=== PATIENT | female | born 1995 | race Caucasian/White ===

== ENCOUNTER → 2016-07-24 | Outpatient (CLI) | payer OTHER ==
--- NOTE | 2016-07-24 23:03 | WWHP ---
DATE OF SERVICE: 07/24/2016 CHIEF COMPLAINT: Patient is here for her routine gynecologic exam. HPI: This is a 20-year-old G0 with an LMP of 07/19/2016. The patient has been using NuvaRing for control. She has done well with it up until about 2 months ago when she started noticing some soreness near the introitus of the vagina. She denies any pain when nothing is in the vagina but when touching the vagina or placing her menstrual cups or NuvaRing or with sexual intercourse she has noticed some soreness. She removed the NuvaRing last week and states these symptoms have improved. She also noticed some improvement last month when she removed the ring as well. She denies any abnormal discharge and denies any external genitalia symptoms. She does not use control pills because she did have some problems with moodiness and anxiety with the pills. With the Nuva ring, she did not have these problems but has noticed a slightly less sex drive. She is otherwise without complaints. PAST MEDICAL HISTORY: Unremarkable. MEDICATIONS: NuvaRing as directed. ALLERGIES: No known drug allergies. PAST SURGICAL HISTORY: Unremarkable. 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 She has no history of STDs. SOCIAL HISTORY: She denies tobacco and drug use. She socially drinks alcohol about once a month. She is a student at [employer] and is studying history. She has been with her boyfriend since 12/05 and states this is in her first and only sexual partner. FAMILY HISTORY: Unchanged from the 2015 H&P. REVIEW OF SYSTEMS: She has gained 3 pounds over the last year. She denies respiratory, cardiac, or GI problems. PHYSICAL EXAM: Blood pressure 113/78. Height 5 feet 6 inches. Weight 115 pounds. Temperature 98.3, pulse 102. This a well-developed, well-nourished white female who is alert and oriented x3 in no acute distress. HEENT is within normal limits. NECK: Supple without mass or thyromegaly. CHEST AND LUNGS: Clear to auscultation. HEART: Regular rate and rhythm. Breasts are without mass or discharge. Axillary exam is negative for adenopathy. BACK: Negative for CVA tenderness. ABDOMEN: Soft, nontender, without palpable masses. PELVIC EXAM: Normal external genitalia. Cervix and vagina appear normal. There is no unusual vaginal discharge. With bimanual examination some tightening of the introital muscles is noted and this seems to be slightly more tight around the introitus than average. Beyond these muscles there is no significant narrowing within the vagina. In the area of the introital muscles, seems to be where soreness is. It is difficult to know if this is the muscles or a more superficial soreness. No lesions are noted in this area of the vagina or anywhere else in the vagina. There is no cervical motion tenderness. The uterus is retroverted, nongravid size and nontender. There are no palpable adnexal masses or tenderness. Rectal exam was deferred. EXTREMITIES: Nontender. IMPRESSION: 1. A 20-year-old female with recent vaginal soreness that seems to be associated with the Nuva Ring. 2. Differential diagnosis will include introital muscle soreness and possible muscle spasms. 3. There are otherwise no other physical findings and no evidence of infection cause for this discomfort. PLAN: 1. Pap smear was deferred until age 21. 2. Self-breast examination was discussed. 3. GC and Chlamydia screening from the cervix has been obtained. 4. The patient would like to try different control method because she does feel that the soreness is associated with the NuvaRing. We discussed various other options, including barrier methods, hormonal methods, including Depo-Provera and Nexplanon implants as well as IUD. The patient would like to have a trial of the Ortho Evra patch. We discussed possible risks and side effects including possible increased risk for blood clots. She also understands that total hormonal amounts in the body may be slightly greater than other hormonal methods. She will watch for signs of moodiness, depression or anxiety. If she is having problems, she can discontinue the patch at any time. She will apply the patch to the low abdomen or hip areas starting at the onset of her next normal menstrual period. She will change these weekly and have the patch removed after 3 consecutive weeks with patch. She will continue to do this monthly type of cycle with the patches. She will also read the instructions for the patch. 5. If she is not having success with the Ortho Evra patch. We will consider the ParaGard IUD. Information pamphlet on this was given to the patient. 6. Return in one year and p.r.n.
== END | disposition home or self-care (01) ==
LOC: WWCWWP 11:20
PROVIDERS: ATTEND Obstetrics & Gynecology
DX: Z11.3 Encounter for screening for infections with a predominantly sexual mode of transmission (principal)
CPT/HCPCS: 87491; 87591

== ENCOUNTER → 2018-02-24 | Outpatient (CLI) | payer OTHER ==
[2018-02-24 10:26] VITALS: BP 110/71; PULSE 86; TEMP 97; BMI 18.3
--- NOTE | 2018-02-24 11:08 | P.HPOB ---
History of Present Illness H&P Date: 02/24/18 Chief Complaint: The patient is here for her routine gynecologic exam and control. This is a 22-year-old G0 with an LMP of 02/09/2018. She has been using Xulane patches for control. Her prescription ran out 2 weeks ago. She has also been using condoms. She is without gynecologic complaints and would like to restart the control patch. Review of Systems The patient's weight has been stable over the last year. She denies respiratory , cardiac, or G.I. problems. 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 History of Any Multi-Drug Resistant Organisms: None Reported Past Surgical History: No Surgical Hx Reported Past Psychological History: No Psychological Hx Reported Smoking Status: Never smoker Past Alcohol Use History: Occasional (One per week) Past Drug Use History: None Reported Additional History: She is single and has been with her boyfriend since 2014. She is a student at [employer] in plans to graduate in 2019. - Past Family History Father Family Medical History: Coronary Artery Disease (CAD), Hypertension Mother Additional Family Medical History / Comment(s): Depression Medications and Allergies Home Medications Medication Instructions Recorded Confirmed Type No Known Home Medications 02/24/18 02/24/18 History Allergies Allergy/AdvReac Type Severity Reaction Status Date / Time No Known Allergies Allergy Unverified 02/24/18 10:24 Exam Vital Signs Temp Pulse BP 02/24/18 10:24 97.0 F L 86 110/71 Intake and Output 02/23/18 02/24/18 02/24/18 22:59 06:59 14:59 Other: Weight 51.71 kg Height 5'6", BMI 18.4. This is a well-developed well-nourished thin white female who is alert and oriented times 3 in no acute distress. HEENT: Within normal limits. NECK: Supple without mass or thyromegaly. CHEST AND LUNGS: Clear to auscultation. HEART: Regular rate and rhythm. BREASTS: Are without mass or discharge. There is bilateral central nipple inversion which she states she has always had. AXILLARY EXAM: Negative for adenopathy. BACK: Negative for CVA tenderness. ABDOMEN: Soft, nontender, without palpable masses. PELVIC EXAM: Normal external genitalia. Cervix and vagina appear normal. There is no unusual discharge. The cervix is slightly friable upon doing the Pap smear. There is no evidence of prolapse. The uterus is retroverted, nongravid size and nontender. There are no palpable adnexal masses or tenderness. RECTAL EXAM: deferred EXTREMITIES: Nontender. IMPRESSION: 1. 22-year-old female with normal gynecologic exam who has been doing well with Xulane patches for control. 2. She states she has completed her HPV vaccination series in the past. PLAN: 1. Pap smear was performed. 2. Self breast awareness 3. STD prevention was discussed. GC and Chlamydia screening has been obtained from the cervix. 4. She will start restart her control patch on the 1st day for next normal menstrual period. She will continue to use condoms. The electronic prescription will be sent to [facility] pharmacy in [place]. 5. Osteoporosis prevention was discussed. 6. She will return in one year.
== END | disposition home or self-care (01) ==
LOC: WWCWWP 10:03
PROVIDERS: ATTEND Obstetrics & Gynecology
DX: Z53.9 Procedure and treatment not carried out, unspecified reason (principal)

== ENCOUNTER → 2021-10-23 | Outpatient (CLI) | payer BC ==
[2021-10-23 13:21] VITALS: BP 131/85; PULSE 51; RESP 17; TEMP 98.5
--- NOTE | 2021-10-23 15:06 | P.HPOB ---
History of Present Illness H&P Date: 10/23/21 Chief Complaint: The patient is here for her routine gynecologic exam. This is a 26-year-old G0 with an LMP of 09/27/2021. She has been using condoms for control, but more recently her has had a vasectomy. She has experienced a small amount of post coital bleeding. She states it has gone on for a number of years but was not very frequent in the past and now seems to be happening about 50% of the time. There are times when she notices a stinging- type pain with sex and she tends to have bleeding more commonly when she experiencing this type of discomfort. The discomfort is not very severe and usually does not cause her to stop with the sexual activity. She also notices there are times when she has discomfort in certain positions. She denies any unusual vaginal discharge or vaginal odor. The post coital bleeding typically lasts for a very short amount of time. One exception was with a menstrual period, she had sex toward the end of the period and this caused her to spot 3 additional days. Menstrual periods are regular every month and she denies intermenstrual bleeding at times other than after intercourse. Review of Systems She has gained about 20 pounds over the past 3 years. She denies respiratory, cardiac, or GI problems. 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 History of Any Multi-Drug Resistant Organisms: None Reported Past Surgical History: No Surgical Hx Reported Past Psychological History: No Psychological Hx Reported Smoking Status: Never smoker Past Alcohol Use History: Occasional (4 per month) Past Drug Use History: None Reported Additional History: She has been with her boyfriend since 2014 and lives with him. 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 Her job is in [place], but works from the she can remotely. - Past Family History Father Family Medical History: Coronary Artery Disease (CAD), Hypertension Mother Additional Family Medical History / Comment(s): Depression Medications and Allergies Home Medications Medication Instructions Recorded Confirmed Type Pantoprazole [Protonix] 40 mg PO DAILY 10/23/21 10/23/21 History Allergies Allergy/AdvReac Type Severity Reaction Status Date / Time No Known Allergies Allergy Unverified 10/23/21 13:16 Exam Vital Signs Temp Pulse Resp BP Pulse Ox 10/23/21 13:18 98.5 F 51 L 17 131/85 98 Intake and Output 10/22/21 10/23/21 10/23/21 22:59 06:59 14:59 Other: Weight 61.235 kg Height 5 feet 6 inches, weight 135 pounds, BMI 21.8. This is a well-developed well-nourished white female who is alert and oriented times 3 in no acute distress. HEENT: Within normal limits. NECK: Supple without mass or thyromegaly. CHEST AND LUNGS: Clear to auscultation. HEART: Regular rate and rhythm. BREASTS: Are without mass or discharge. AXILLARY EXAM: Negative for adenopathy. BACK: Negative for CVA tenderness. ABDOMEN: Soft, nontender, without palpable masses. PELVIC EXAM: Normal external genitalia. Cervix and vagina appear normal. The cervix is somewhat friable upon doing GC and Chlamydia testing as well as with doing a Pap smear. There is no unusual discharge. There is no evidence of prolapse. The uterus is sharply retroverted, nongravid size and nontender. There are no palpable adnexal masses or tenderness. RECTAL EXAM: Deferred. EXTREMITIES: Nontender. IMPRESSION: 1. 26-year-old female whose partner is status post vasectomy, with increasing frequency of post coital spotting or bleeding with a friable cervix. Otherwise unremarkable gynecologic exam. 2. Occasional dyspareunia with certain positions and this tends to increase the likelihood of post coital bleeding. 3. Retroverted uterus which may put the cervix in more direct contact with her partner during sexual intercourse. This may explain dyspareunia in certain positions as well as increased post coital bleeding when she does experience dyspareunia. PLAN: 1. Pap smear (cytology only) was performed. 2. GC and Chlamydia testing was obtained from the cervix. 3. Pelvic ultrasound was recommended and the order slip was given to the patient for this. 4. Self breast awareness was discussed with the patient. We have also discussed symptoms associated with inflammatory breast cancer. 5. Trying different positions and using lubricants liberally was discussed with the patient. 6. She was advised to return in one year for her annual well woman exam and as needed.
== END | disposition home or self-care (01) ==
LOC: WWCWWP 13:05
PROVIDERS: ATTEND Obstetrics & Gynecology
DX: Z53.9 Procedure and treatment not carried out, unspecified reason (principal)